=== PATIENT | male | born 1990 | race Caucasian/White ===

== ENCOUNTER 2021-02-27 03:30 | Emergency (ER) | payer MEDICAID ==
[~2021-02-27] VITALS: Ht 182.9 cm; Wt 113.0 kg
[2021-02-27] MEDS ORDERED: DOXYCYCLINE HYCLATE 100MG CAPSULE PO ONE (05:45)
[2021-02-27] MEDS ORDERED: AZITHROMYCIN 500 MG TABLET PO ONE (05:45)
[2021-02-27] MEDS ORDERED: ACETAMINOPHEN 325MG TABLET PO ONE (05:45)
[2021-02-27] MEDS ORDERED: DOXY100C5 MT (05:57)
[2021-02-27] MEDS ORDERED: ACET-2708 MT (05:57)
[2021-02-27] MEDS ORDERED: NAPR-1176 MT (05:57)
[2021-02-27] MEDS ORDERED: CEFTRIAXONE SODIUM 500 MG/VIAL IM ONE (06:30)
[2021-02-27] MEDS ORDERED: LIDOCAINE HCL 1% 20ML VIAL (Pyxis) INJ INFIL ONE (06:45)
[2021-02-27 06:55] VITALS: BP 128/72
[2021-02-28 06:07] LABS: HIV SCREEN 4G Non Reactive (Non Reactive)
== END 2021-02-27 06:56 | disposition home or self-care (01) ==
LOC: ER 03:30
DX: A57 Chancroid (principal); Z90.49 Acquired absence of other specified parts of digestive tract
CPT/HCPCS: 86592; 86593; 86780; 87389; 87529; 96372; 99284; J0696; J3490